=== PATIENT | male | born 1960 | race Caucasian/White ===

== ENCOUNTER 2019-02-28 11:24 | Emergency (ER) | payer MEDICARE ==
[~2019-02-28] VITALS: Ht 160 cm; Wt 85.0 kg
[2019-02-28 11:27] VITALS: Ht 160 cm; Wt 85.0 kg
[2019-02-28] MEDS ORDERED: LORAZEPAM 2 MG INJ IV STA (11:27)
--- NOTE | 2019-02-28 13:10 | ERD ---
ER Documentation Chief Complaint Chief Complaint ACTIVE SEIZURE FROM INTAKE HPI 58-year-old male brought to the emergency department by his family for evaluation of a seizure. Patient was in his usual state of health until this morning at which time he had the acute onset of his normal seizure activity. Patient had no headache, f alexy, chills. According to the daughter, patient has been compliant with his medication. ROS All systems reviewed and are negative except as per history of present illness. Allergies Allergies: Coded Allergies: No Known Allergy (Unverified , 02/28/19) PMhx/Soc Medical and Surgical Hx: pt denies Medical Hx, pt denies Surgical Hx Hx Alcohol Use: No Hx Substance Use: No Hx Tobacco Use: No Smoking Status: Never smoker FmHx Supportive family at bedside. Physical Exam Vitals Vital Signs Date Temp Pulse Resp B/P (MAP) Pulse Ox O2 O2 Flow FiO2 Time Delivery Rate 02/28/19 97.1 66 16 144/98 98 Nasal 2.0 13:04 (113) Cannula 02/28/19 98.1 89 18 162/112 99 11:27 (129) Physical Exam GENERAL: Actively seizing upon arrival HEENT: Pupils equal, round, and reactive to light. EOMI. There is no scleral icterus. NECK: C-spine is soft and supple, there is no meningismus. There is no cervical lymphadenopathy. LUNGS: Clear to auscultation bilaterally. There are no rales, wheezes or rhonchi. HEART: Regular rate and rhythm, no murmurs, clicks, rubs or gallops. ABDOMEN: Soft, non-tender, non-distended. There are bowel sounds in all four quadrants. No rebound or guarding. EXTREMITIES: There is no peripheral cyanosis or edema. No focal swelling or erythema. NEURO: Patient is actively seizing. Pupils are midrange, equal round and reactive. Motor strength is 5 out of 5 in all upper extremities. SKIN: There is no apparent rash or petechiae. HEME/LYMPHATIC: There is no evidence of excessive bruising or lymphedema. PSYCHIATRIC: The patient does not appear anxious or depressed. Result Diagram: 02/28/19 1126 02/28/19 1126 Results 24 hrs Laboratory Tests Test 02/28/19 11:26 White Blood Count 8.6 10^3/ul Red Blood Count 5.25 10^6/ul Hemoglobin 15.7 g/dl Hematocrit 46.9 % Mean Corpuscular Volume 89.3 fl Mean Corpuscular Hemoglobin 29.9 pg Mean Corpuscular Hemoglobin Concent 33.5 g/dl Red Cell Distribution Width 13.3 % Platelet Count 243 10^3/UL Mean Platelet Volume 9.0 fl Immature Granulocytes % 0.400 % Neutrophils % 51.5 % Lymphocytes % 38.8 % Monocytes % 8.4 % Eosinophils % 0.7 % Basophils % 0.2 % Nucleated Red Blood Cells % 0.0 /100WBC Immature Granulocytes # 0.030 10^3/ul Neutrophils # 4.4 10^3/ul Lymphocytes # 3.3 10^3/ul Monocytes # 0.7 10^3/ul Eosinophils # 0.1 10^3/ul Basophils # 0.0 10^3/ul Nucleated Red Blood Cells # 0.0 10^3/ul Sodium Level 141 mmol/L Potassium Level 3.8 mmol/L Chloride Level 105 mmol/L Carbon Dioxide Level 24 mmol/L Anion Gap 12 Blood Urea Nitrogen 15 mg/dl Creatinine 0.73 mg/dl Est Glomerular Filtrat Rate mL/min > 60 mL/min Glucose Level 104 mg/dl Calcium Level 9.5 mg/dl Phenytoin (Dilantin) Level 25.6 ug/ml Valproic Acid (Depakene) Level 48 ug/ml Current Medications Medications Dose Sig/Rebecca Start Time Status Last (Trade) Ordered Route PRN Stop Time Admin Dose Reason Admin Lorazepam 1 mg ONCE STAT 02/28/19 DC 02/28/19 (Ativan) IV 11:27 11:35 02/28/19 11:28 Procedures/MDM Patient was taken to a room, seen and evaluated. Ativan was given for active seizure and the seizure stopped. Diagnostic tests were ordered and reviewed. 3 LEAD RHYTHM STRIP: [Normal sinus rhythm without ectopy] REEVALUATION: 1305: Diagnostic tests were appreciated him in setting an elevated Dilantin level, but no other significant high risk pathology. Patient is remain ed seizure-free but appears to be postictal. MEDICAL DECISION MAKIN-year-old male presents the emergency department with active seizure. Patient has no localizing neurologic symptoms and I have no concerns for significant intracranial concerns. Patient will remain under observation until such time he can be reevaluated from a neurologic standpoint. Departure Diagnosis: Primary Impression: Seizure disorder Condition: Fair IFTIKHAR,IFEOMA Feb 28, 2019 13:10
[2019-02-28] MEDS ORDERED: DIVA-48 PO (14:03)
[2019-02-28] MEDS ORDERED: SERT-165 ORAL (14:03)
[2019-02-28] MEDS ORDERED: LACO200T2 ORAL (14:03)
[2019-02-28] MEDS ORDERED: PHEN100C PO ×2 (14:03)
[2019-02-28] MEDS ORDERED: DIVA-16 ORAL (14:03)
[2019-02-28] MEDS ORDERED: BENA20TA4 ORAL (14:04)
[2019-02-28] MEDS ORDERED: ATOR20TA65 ORAL (14:04)
[2019-02-28 17:02] VITALS: BP 132/76; PULSE 65; RESP 16
== END 2019-02-28 17:05 | disposition home or self-care (01) ==
LOC: E/R 11:24
DX: G40.909 Epilepsy, unspecified, not intractable, without status epilepticus (principal)
CPT/HCPCS: 36415; 80048; 80164; 80185; 85025; 96374; 99284; J2060